=== PATIENT | female | born 1965 | race African-American/Black ===

== ENCOUNTER 2016-12-17 08:30 | Inpatient (IN) ==
[2016-12-17] MEDS ORDERED: MOTRIN PO ONE (08:41)
[2016-12-17] MEDS ORDERED: ZOFRAN ODT ONE (08:43)
[2016-12-17] MEDS ORDERED: ZOFRAN ODT PO ONE (08:46)
[2016-12-17] MEDS ORDERED: VANCOMYCIN 1 GM/NS 1 GM/250 ML IVPB IV ONE (08:51)
[2016-12-17 09:35] LABS: BASO% 0.1 % (0.0-0.8); EOS# 0.01 X1000 (0.0-0.7); EOS% 0.1 % (0.0-10.0); HEMOGLOBIN 12.8 g/dL (12.0-16.0); IMM GRAN# 0.05 X1000 (0.0-0.04); IMM GRAN% 0.3 % (0.0-0.5); LYMPH# 0.71 X1000 (1.2-3.4); LYMPH% 3.8 % (20.5-51.1); MANUAL DIFF NEEDED? YES; MONO# 0.92 X1000 (0.11-0.59); MONO% 4.9 % (1.7-9.3); MPV 10.9 FL (7.4-10.4); NEUT% 90.8 % (42.2-75.2); PLT 270 X1000 (130-400); RBC 5.13 XMIL (4.2-5.4)
[2016-12-17 09:55] LABS: AGAP 12; ALBUMIN 4.2 g/dL (3.5-5.0); ALKALINE PHOSPHATASE 88 U/L (32-104); BUN 14 mg/dL (8-22); CALCIUM 9.5 mg/dL (8.8-10.2); CHLORIDE 100 mmol/L (98-107); COSMO 273; GOT 25 U/L (10-30); GPT 20 U/L (10-36); POTASSIUM 3.4 mmol/L (3.5-5.1); SODIUM 136 mmol/L (136-145); TCO2 24 mmol/L (25-35)
[2016-12-17 10:05] LABS: BILIRUBIN URINE NEGATIVE (NEGATIVE); BLOOD URINE NEGATIVE (NEGATIVE); CLARITY CLEAR (CLEAR); COLOR YELLOW; GLUCOSE URINE NEGATIVE (NEGATIVE); LEUKOCYTES URINE 1+ (NEGATIVE); NITRITE URINE NEGATIVE (NEGATIVE); PROTEIN URINE NEGATIVE (NEGATIVE); SP GRAVITY URINE 1.015; UROBILINOGEN URINE NORMAL
[2016-12-17 10:07] LABS: URINE CULTURE PL NEEDED? YES; URINE EPITHELIAL CELLS >10 /HPF (<10); URINE WBC 20-40 /HPF (<10)
[2016-12-17 10:08] LABS: URINE SOURCE CLEAN CATCH
--- NOTE | 2016-12-17 10:20 | Diag Imaging Result Document ---
PROCEDURE NAME: CHEST-PORTABLE - 12/17/2016 SINGLE FRONTAL RADIOGRAPH OF THE CHEST: COMPARISON: 01/25/2016. FINDINGS: The lungs are grossly clear. There is no discrete pleural fluid collection or evidence of pneumothorax. The cardiomediastinal silhouette and upper airway are grossly unremarkable. IMPRESSION: No evidence of acute chest pathology.
[2016-12-17] MEDS ORDERED: FLAGYL PO ONE (10:30)
[2016-12-17] MEDS ORDERED: ROCEPHIN 1 GM/NS 1 GM/50 ML IVPB IV ONE (10:30)
[2016-12-17 10:37] LABS: LYMPHS 7 % (21-51); MONO 7 % (1-9)
[2016-12-17] MEDS ORDERED: FLAGYL ONE (10:53)
--- NOTE | 2016-12-17 11:04 | PROVIDER DOCUMENTATION ---
This chart was entered by Lacho Leroy Scribe, acting as scribe for Chaparrita Bowman MD. HPI-Musculoskeletal Pain/Inj - GENERAL Chief Complaint: General Adult Stated Complaint: BODYACHES Time Seen by Provider: 12/17/16 08:49 Source: patient - HX OF PRESENT ILLNESS-MUSKULOSKELTAL Nature of Presenting Problem: :Hx of left leg cellulitits since 2006 reports possible flare up x 1 day with fever and body aches since last night. Denies any injury to extremity, sob,n,v. Quality of Pain: reports: aching Severity in ED: mild Onset/Duration: 24 hours ago Timing: still present Any recent injury?: No Locality of Occurance: Home Similar Symptoms Previously?: Yes Recently seen or treated by another doctor?: No Review of Systems - Adult - REVIEW OF SYSTEMS - ADULT Constitutional: reports: fever, other (bodyaches). denies: chills, fatique, night sweats, weight loss Eyes: reports: no symptoms reported Ears, Nose, Mouth & Throat: denies: ear pain, sinus problem, throat pain Cardiovascular: reports: no symptoms reported Respiratory: denies: cough, shortness of breath, wheezing Gastrointestinal: denies: abdominal pain, diarrhea, nausea, vomiting Genitourinary: reports: no symptoms reported Musculoskeletal: reports: see HPI, other (LLE swelling). denies: joint pain, joint swelling Integumentary: reports: no symptoms reported Neurological: reports: no symptoms reported Psychiatric: reports: no symptoms reported Endocrine: reports: no symptoms reported Hematologic/Lymphatic: reports: no symptoms reported Allergic/Immunologic: reports: no symptoms reported All Other Systems: Reviewed and Negative Past History - Adult - PAST MEDICAL HISTORY-ADULT Review of Records: reports: Nursing Assessment Review, Medications Reviewed Major Childhood Illnesses: reports: denies history Cardiovascular: reports: HTN Respiratory: reports: denies history Gastrointestinal: reports: GERD Obstetrical/Gynecological: reports: denies history Genitourinary: reports: denies history Musculoskeletal: reports: denies history Neurological: reports: denies history Endocrine/Immune: reports: denies history Other Conditions: reports: denies history - PRIOR SURGERIES/PROCEDURES Surgical/Procedure History: reports: BTL, other (LLE cellulitis) - PRIOR HOSPITALIZATIONS Prior Hospitalizations: reports: for similar symptoms - IMMUNIZATION STATUS Childhood Immunizations: See Nurse Assessment Flu Vaccine: See Nurse Assessment - FAMILY HISTORY Family History: reviewed, not pertinent - SOCIAL HISTORY Smoking: denies Substance Use: alcohol Alcohol Use Frequency: occasionally Physical Exam-Injury Related - Physical Exam-Injury Related Initial Vital Signs Reviewed: Yes General Appearance: appears well, alert, no apparent distress Eyes: PERRL/EOMI, pink conjunctivae Head, Ears, Nose, Mouth & Throat: moist mucous membranes, TMs normal, pharynx normal Neck: non-tender, full range of motion, supple, normal inspection Respiratory: chest non-tender, lungs clear, normal breath sounds, no pleuratic chest pain, no respiratory distress, no accessory muscle use Cardiovascular: tachycardia Peripheral Pulses: dorsalis-pedis (R): 2+, dorsalis-pedis (L): 2+ Abdominal Exam: non tender, soft, no organomegaly, no pulsatile mass Extremity: normal range of motion, swelling (LLE swelling warm to touch and erythemic). negative: pulse deficit, slow capillary refill Integumentary: normal color, warm/dry Neurologic: grossly normal Psych/Mental Status: normal mood/affect, normal thought content, normal thought process, oriented x 3 - Glascow Coma Score Best Eye Response ([place]): (4) open spontaneously Best Verbal Response ([place]): (5) oriented Best Motor Response ([place]): (6) obeys commands [place] Total: 15 Progress - PLAN OF CARE/RESULTS Progress/Plan/Lab Results: Vital Signs - 8 hr 12/17/16 08:37 12/17/16 09:44 Temperature 102.0 F H 101.3 F H Pulse Rate 109 H Respiratory Rate 18 Blood Pressure 173/103 O2 Sat by Pulse Oximetry 96 Laboratory Results - last 24 hr 12/17/16 12/17/16 12/17/16 08:11 09:10 09:10 WBC 18.73 H RBC 5.13 Hgb 12.8 Hct 40.0 MCV 78.0 L MCH 25.0 L MCHC 32.0 L RDW Std Deviation 15.3 H Plt Count 270 MPV 10.9 H Immature Gran % (Auto) 0.3 Neut % (Auto) 90.8 H Lymph % (Auto) 3.8 L Mckenzie % (Auto) 4.9 Eos % (Auto) 0.1 Baso % (Auto) 0.1 Immature Gran # (Auto) 0.05 H Neut # (Auto) 17.03 H Lymph # (Auto) 0.71 L Mckenzie # (Auto) 0.92 H Eos # (Auto) 0.01 Baso # (Auto) 0.01 Segmented Neutrophils 86 H Lymphocytes 7 L Monocytes 7 Sodium 136 Potassium 3.4 L Chloride 100 Carbon Dioxide 24 L Anion Gap 12 BUN 14 Creatinine 0.7 Estimated GFR/1.73 m2 > 60 BUN/Creatinine Ratio 20 Glucose 114 H Calculated Osmolality 273 Calcium 9.5 Total Bilirubin 0.40 AST 25 ALT 20 Alkaline Phosphatase 88 Total Protein 8.0 Albumin 4.2 Globulin 4.0 Albumin/Globulin Ratio 1.0 Plasma Lactate Urine Source Urine Color Urine Clarity Urine pH Ur Specific [place] Urine Protein Urine Ketones Urine Blood Urine Nitrite Urine Bilirubin Urine Urobilinogen Urine Microscopic RBC Urine WBC Urine Microscopic WBC Ur Epithelial Cells Urine Bacteria Urine Glucose Influenza A (Rapid) NEGATIVE Influenza B (Rapid) NEGATIVE 12/17/16 12/17/16 09:10 09:36 WBC RBC Hgb Hct MCV MCH MCHC RDW Std Deviation Plt Count MPV Immature Gran % (Auto) Neut % (Auto) Lymph % (Auto) Mckenzie % (Auto) Eos % (Auto) Baso % (Auto) Immature Gran # (Auto) Neut # (Auto) Lymph # (Auto) Mckenzie # (Auto) Eos # (Auto) Baso # (Auto) Segmented Neutrophils Lymphocytes Monocytes Sodium Potassium Chloride Carbon Dioxide Anion Gap BUN Creatinine Estimated GFR/1.73 m2 BUN/Creatinine Ratio Glucose Calculated Osmolality Calcium Total Bilirubin AST ALT Alkaline Phosphatase Total Protein Albumin Globulin Albumin/Globulin Ratio Plasma Lactate 0.9 Urine Source CLEAN CATCH Urine Color YELLOW Urine Clarity CLEAR Urine pH 6.0 Ur Specific [place] 1.015 Urine Protein NEGATIVE Urine Ketones NEGATIVE Urine Blood NEGATIVE Urine Nitrite NEGATIVE Urine Bilirubin NEGATIVE Urine Urobilinogen NORMAL Urine Microscopic RBC Not Reportable Urine WBC 1+ A Urine Microscopic WBC 20-40 A Ur Epithelial Cells >10 A Urine Bacteria 1+ Urine Glucose NEGATIVE Influenza A (Rapid) Influenza B (Rapid) Orders Category Date Time Status Saline Loc NOW Care 12/17/16 08:51 Active CHEST-PORTABLE [RAD] Stat Exams 12/17/16 09:16 Completed BLOOD CULTURE [BLDCUL] Stat Lab 12/17/16 08:51 Ordered CBC WITH DIFF [HEME] Stat Lab 12/17/16 09:10 Completed COMPREHENSIVE METABOLIC PANEL [CHEM] Stat Lab 12/17/16 09:[address] Stat Lab 12/17/16 08:11 Completed LACTATE, PLASMA [CHEM] Stat Lab 12/17/16 09:10 Completed URINE CULTURE [RM] Routine Lab 12/17/16 10:08 Ordered ua [URINALYSIS PL W/POSS RFLX CULT] [URINALYSIS] Stat Lab 12/17/16 09:36 Completed CefTRIAXONE 1 GM/NS [Rocephin 1 gm/Ns] Med 12/17/16 10:30 Discontinued 1 gm in 50 ml IV NOW Ibuprofen [Motrin] Med 12/17/16 08:41 Discontinued 800 mg PO NOW ONE Metronidazole [Flagyl] Med 12/17/16 10:53 Discontinued 500 mg .ROUTE .STK-MED ONE Metronidazole [Flagyl] Med 12/17/16 10:30 Discontinued 500 mg PO NOW ONE Ondansetron Odt [Zofran Odt] Med 12/17/16 08:43 Discontinued 4 mg .ROUTE .STK-MED ONE Ondansetron Odt [Zofran Odt] Med 12/17/16 08:46 Discontinued 4 mg PO NOW ONE Vancomycin 1 gm/Ns Med 12/17/16 08:51 Discontinued 1 gm in 250 ml IV NOW Result Diagrams: 12/17/16 09:10 12/17/16 09:10 - XRAY 1 XRAY: Bilateral XRAY Study: Chest Impression: Normal XRAY Interpretation: nad - CONSULTS/PCP/HOSPITALIST Notification Time Discussed: 11:04 Reason/Comments: Admit to Dr. Zarate Departure - Departure Time of Disposition Decision: 11:02 DIAGNOSIS: Fever Qualifiers: Fever type: unspecified Qualified Code(s): R50.9 - Fever, unspecified Cellulitis Qualifiers: Site of cellulitis: unspecified site Qualified Code(s): L03.90 - Cellulitis, unspecified UTI (urinary tract infection) Qualifiers: Urinary tract infection type: acute cystitis Hematuria presence: without hematuria Qualified Code(s): N30.00 - Acute cystitis without hematuria Vaginitis Qualifiers: Chronicity: acute Qualified Code(s): N76.0 - Acute vaginitis Disposition: ADMITTED INPATIENT 09 Certified Medical Emergency: Emergent Condition: Stable Referrals and Follow-Ups: Uche Marsh MD [Primary Care Provider] - This chart was documented by the indicated scribe, (Lacho Leroy Scribe) and accurately reflects the services I performed and decisions made by me, Chaparrita Bowman MD, as attested by the provider's signature.
[2016-12-17] MEDS ORDERED: PHENERGAN PO PRN (15:46)
[2016-12-17] MEDS: NORCO-5 PO PRN ×2 (15:53→20:20)
[2016-12-17] MEDS ORDERED: VANCOMYCIN IV PER PHARMACY MISC SCH (18:00)
[2016-12-17] MEDS ORDERED: ROCEPHIN 1 GM/NS 1 GM/50 ML IVPB IV SCH (18:00)
[2016-12-17] MEDS: HYDROCHLOROTHIAZIDE PO SCH (20:19)
[2016-12-17] MEDS: CLARITIN PO SCH (20:19)
[2016-12-17] MEDS: PRINIVIL PO SCH (20:19)
[2016-12-17] MEDS: VANCOMYCIN 2,000 MG in NS 500 ML IV SCH (20:21)
[2016-12-17] MEDS ORDERED: NS 500 ML ONE (20:26)
[2016-12-18] MEDS ORDERED: MOTRIN PO ONE (04:51)
[2016-12-18 06:59] LABS: HEMATOCRIT 35.4 % (37.0-47.0); HEMOGLOBIN 11.3 g/dL (12.0-16.0); MCH 25.1 PG (27-31); MCHC 31.9 g/dL (33-37); MCV 78.5 FL (81-99); RBC 4.51 XMIL (4.2-5.4)
[2016-12-18 07:18] LABS: AGAP 10; ALBUMIN 3.5 g/dL (3.5-5.0); ALKALINE PHOSPHATASE 73 U/L (32-104); BUN 10 mg/dL (8-22); CALCIUM 9.2 mg/dL (8.8-10.2); CHLORIDE 100 mmol/L (98-107); COSMO 269; GOT 19 U/L (10-30); GPT 18 U/L (10-36); MAGNESIUM 1.9 mg/dL (1.5-2.7); SODIUM 135 mmol/L (136-145); TCO2 25 mmol/L (25-35)
[2016-12-18] MEDS: VANCOMYCIN 2,000 MG in NS 500 ML IV SCH ×2 (08:17→20:25)
[2016-12-18] MEDS: LASIX IV SCH ×2 (08:21→20:25)
[2016-12-18] MEDS ORDERED: KLOR-CON PO ONE (08:49)
--- NOTE | 2016-12-18 09:08 | PROGRESS NOTE ---
DATE: 12/18/2016 SUBJECTIVE: The patient notes she is feeling a little bit better. She is having less pain and swelling in her lower extremity, but does note that she had a fever yesterday. PHYSICAL EXAMINATION: Vital Signs: Temp 98, T-max 101.8 degrees at 8 p.m. on the sixth, pulse 80, respiratory rate 18, and BP 129/78. General: Patient is a well developed, well nourished female, who is currently in no respiratory distress. She is pleasant to talk with, sitting in a chair. HEENT: Normocephalic, atraumatic. Neck: Supple. CV: Regular rate. Chest: Relatively clear. Abdomen: Soft. Extremities: Moves all extremities. Neurologic: No changes. Skin: She has less erythema, although still present. It is not as deep. She has less swelling and less warmth to her left lower extremity. ASSESSMENT: 1. Cellulitis, left lower extremity. 2. Leukocytosis, improved. White blood cell count dropped from 18 to 10. 3. Hypokalemia. We will replace. 4. Sepsis secondary to cellulitis as noted by leukocytosis and fever, improving. PLAN: We will continue IV Lasix, IV antibiotics today. Recheck potassium in the a.m. and hopefully home in the a.m.. cc: Hunter Zarate MD
[2016-12-18] MEDS ORDERED: ROCEPHIN 1 GM/NS 1 GM/50 ML IVPB IV SCH (10:00)
--- NOTE | 2016-12-18 16:53 | HISTORY AND PHYSICAL ---
PRIMARY CARE PHYSICIAN: Dr. Uche Marsh. CHIEF COMPLAINT: Fever and body aches. "I think the cellulitis to my left leg is acting up." HISTORY OF PRESENT ILLNESS: This is a 51-year-old female with a prior history of recurrent left lower extremity cellulitis. She comes to the emergency room complaining of fever, chills, generalized body aches. Temperature in the emergency room was actually 102 oral. She states that she has had recurring left leg cellulitis since 2006 and that through the night she started having some pain and redness to that leg. She denies any recent antibiotic use. As stated, she did have a temperature of 102. White count was 18.7. Left lower extremity is noted to be erythematous, warm to touch with some pretibial edema. Blood cultures and urine cultures were obtained. She was given Rocephin, vancomycin, Flagyl as well as IV hydration and she is admitted for further evaluation and treatment. PAST MEDICAL HISTORY: Recurring left lower extremity cellulitis. Hypertension. PAST SURGICAL HISTORY: Denies. SOCIAL HISTORY: She denies tobacco use. She does drink socially. She denies illicit drug use. ALLERGIES: Iodine and shrimp which cause anaphylaxis. HOME MEDICATIONS: Lisinopril/hydrochlorothiazide 20/25 at bedtime. Claritin at bedtime. REVIEW OF SYSTEMS: A 14 point review of systems is discussed with patient with pertinent positives stated in the HPI. She denies chest pain, syncope, dizziness, shortness of breath, PND, orthopnea, cough, recent weight loss or weight gain, any nausea, vomiting, diarrhea, constipation, black or bloody vomitus, black or bloody stools, hematuria, dysuria, frequency, urgency. PHYSICAL EXAMINATION: GENERAL: This is a 51-year-old female who is sitting in the bed, in no distress. VITAL SIGNS: Blood pressure is 138/67 with a heart rate of 96, respirations are 18, temperature is 99.8 degrees oral with room air saturations 93-95%. HEENT: Head is normocephalic, atraumatic. Pupils equal, round, react to light. EOMs are intact. Sclerae anicteric. Mucous membranes are moist. NECK: Supple. Trachea midline. CARDIOVASCULAR: Regular rate and rhythm. S1 and S2 appreciated. PULMONARY: Breath sounds are clear. No increased work of breathing noted. GASTROINTESTINAL: Soft, nontender, nondistended. Bowel sounds in all 4 quadrants. MUSCULOSKELETAL: Good range of motion to joints. NEUROLOGIC: She is alert and oriented x3. EXTREMITIES: No clubbing, cyanosis, or edema to upper extremities and right lower extremity. Left lower extremity has 1+ pitting edema. Pulses are palpable. Calves are nontender. DIAGNOSTICS: WBC is 18.7 with hemoglobin 12.8, hematocrit 40, and platelets of 270,000. Sodium is 136, potassium 3.4, BUN 14, creatinine 0.7 with a glucose of 114. Chest x-ray: No evidence of acute pathology. ASSESSMENT AND PLAN: 1. Recurring left lower extremity cellulitis. 2. Leukocytosis. 3. Hypokalemia. 4. Sepsis secondary to cellulitis is noted by leukocytosis and fever, improving. She will be admitted to the hospital. We will continue with IV hydration as well as IV antibiotics. We will continue with Lortab for pain control with Phenergan for nausea. We will trend labs in the morning. Further treatments pending hospital course. Dictated by GRACIELA Mars for Hunter Zarate MD cc: GRACIELA Mars MD
[2016-12-18] MEDS: NORCO-5 PO PRN (19:34)
[2016-12-18] MEDS: PRINIVIL PO SCH (20:25)
[2016-12-18] MEDS: HYDROCHLOROTHIAZIDE PO SCH (20:25)
[2016-12-18] MEDS: CLARITIN PO SCH (20:26)
[2016-12-19] MEDS: NORCO-5 PO PRN ×3 (00:23→23:24)
[2016-12-19 06:41] LABS: HEMATOCRIT 39.1 % (37.0-47.0); HEMOGLOBIN 12.3 g/dL (12.0-16.0); MCH 24.8 PG (27-31); MCHC 31.5 g/dL (33-37); MCV 78.8 FL (81-99); MPV 10.9 FL (7.4-10.4); RBC 4.96 XMIL (4.2-5.4)
[2016-12-19 06:57] LABS: AGAP 10; ALBUMIN 3.7 g/dL (3.5-5.0); ALKALINE PHOSPHATASE 78 U/L (32-104); BUN 12 mg/dL (8-22); CALCIUM 9.4 mg/dL (8.8-10.2); CHLORIDE 100 mmol/L (98-107); COSMO 276; GOT 21 U/L (10-30); GPT 18 U/L (10-36); POTASSIUM 3.2 mmol/L (3.5-5.1); SODIUM 138 mmol/L (136-145); TCO2 29 mmol/L (25-35); TOTAL BILIRUBIN < 0.15 mg/dL (0.20-1.00); TOTAL PROTEIN 7.4 g/dL (6.3-8.3)
[2016-12-19] MEDS: LASIX IV SCH (07:47)
[2016-12-19] MEDS: VANCOMYCIN 2,000 MG in NS 500 ML IV SCH (10:11)
[2016-12-19] MEDS: DOXYCYCLINE PO SCH ×2 (11:42→23:12)
[2016-12-19] MEDS: LASIX PO SCH (11:42)
[2016-12-19] MEDS ORDERED: DULCOLAX PO PRN (11:48)
--- NOTE | 2016-12-19 11:48 | PROGRESS NOTE ---
DATE: 12/19/2016 SUBJECTIVE: The patient notes that her left leg still hurts. Says it was hurting pretty significantly yesterday when her granddaughter accidentally kicked it. She notes that it hurts too much to be up ambulating. PHYSICAL: Temp 98, pulse 70, respiratory rate 18, BP 111/66. Saturation 97% on room air.General: Patient is well developed, well nourished. Currently in no respiratory distress. She is awake, alert. Neck: Supple. CV: Regular rate. Chest: Relatively clear. Abdomen: Soft. Extremities: Moves all extremities. Neurologic: No focal changes. Skin: Warm and dry. She has some erythema to her left lower extremity but this certainly appears better than it did on initial admission to the hospital. No real warmth. Mild tenderness. ASSESSMENT: 1. Recurrent left lower extremity cellulitis likely secondary to vascular congestion rather than true cellulitis. 2. Hypokalemia. 3. Leukocytosis both resolved. PLAN: We will change the patient over to p.o. antibiotics, p.o. medications today. Hopefully home in the a.m. We will recheck labs tomorrow. cc: Hunter Zarate MD
[2016-12-19] MEDS: HYDROCHLOROTHIAZIDE PO SCH (23:12)
[2016-12-19] MEDS: PRINIVIL PO SCH (23:12)
[2016-12-19] MEDS: CLARITIN PO SCH (23:13)
[2016-12-20 06:24] LABS: HEMATOCRIT 40.4 % (37.0-47.0); HEMOGLOBIN 12.7 g/dL (12.0-16.0); MCH 24.5 PG (27-31); MCHC 31.4 g/dL (33-37); MPV 10.9 FL (7.4-10.4); RBC 5.18 XMIL (4.2-5.4)
[2016-12-20 06:52] LABS: AGAP 11; ALBUMIN 3.6 g/dL (3.5-5.0); ALKALINE PHOSPHATASE 80 U/L (32-104); BUN 18 mg/dL (8-22); CALCIUM 9.8 mg/dL (8.8-10.2); CHLORIDE 101 mmol/L (98-107); COSMO 280; GOT 17 U/L (10-30); GPT 18 U/L (10-36); MAGNESIUM 2.1 mg/dL (1.5-2.7); POTASSIUM 3.2 mmol/L (3.5-5.1); SODIUM 139 mmol/L (136-145); TCO2 27 mmol/L (25-35); TOTAL PROTEIN 7.6 g/dL (6.3-8.3)
[2016-12-20] MEDS: LASIX PO SCH (09:08)
[2016-12-20] MEDS: DOXYCYCLINE PO SCH (09:08)
[2016-12-20 12:39] VITALS: BP 115/69
--- NOTE | 2016-12-20 21:39 | DISCHARGE SUMMARY ---
ADMISSION DATE: 12/17/2016 DISCHARGE DATE: 12/20/2016 DISCHARGE DIAGNOSES: 1. Left lower extremity cellulitis likely more secondary to left lower extremity edema. 2. Left lower extremity chronic edema with chronic stasis changes. 3. Leukocytosis resolved. 4. Pain in left lower extremity secondary to chronic venous stasis. 5. Hypokalemia. 6. Sepsis resolved. CONSULTATIONS: None. PROCEDURE: None. HOSPITAL COURSE: Patient is a 51-year-old female who was admitted as noted in the HPI. Treated in usual fashion. She was placed on antibiotics. She had a very mild white count was elevated that has resolved. Her fever has resolved. Her swelling of left lower extremity has improved as too has her pain. On discharge she is awake, alert. She is able to ambulate without any difficulty. DISPOSITION: The patient will be discharged home. She will continue Lasix daily, continued to elevate her foot at least twice a day. Did write a prescription for [place] 5 #30 and doxycycline 100 #14. She will follow up in 1-[address] Marsh. TIME SPENT: 35 minutes was spent in discharge planning instructions. cc: Hunter Zarate MD
== END 2016-12-20 14:59 | disposition home or self-care (01) ==
LOC: P.ED 08:30 → P.MEDSURG 11:38
PROVIDERS: ATTEND Family Medicine